=== PATIENT | female | born 1990 | race Caucasian/White ===

== ENCOUNTER 2022-06-02 16:01 | Emergency (ER) | payer OTHER ==
[~2022-06-02] VITALS: Wt 99.8 kg
[~2022-06-02 16:01] MED LIST: NAPROSYN500 MG PO; NKHM
== END 2022-06-02 19:00 | disposition home or self-care (01) ==
LOC: ED 16:01
DX: S61.210A Laceration without foreign body of right index finger without damage to nail, initial encounter (principal); W45.8XXA Other foreign body or object entering through skin, initial encounter; Y93.89 Activity, other specified; Y92.89 Other specified places as the place of occurrence of the external cause; Y99.8 Other external cause status